=== PATIENT | male | born 1995 | race Caucasian/White ===

== ENCOUNTER → 2024-06-21 13:37 | Outpatient (REF) | payer BC, SELFPAY ==
[2024-06-27 04:21] LABS: HPV, High Risk Not Detected; HPV, High Risk Source Anal
== END ==
LOC: CLAB 13:37
PROVIDERS: ATTENDING PHYSICIAN Surgery
DX: Z86.19 Personal history of other infectious and parasitic diseases (principal)
CPT/HCPCS: 87624; 88112